=== PATIENT | female | born 1940 | race Two or more races ===

== ENCOUNTER 2023-04-10 16:21 | Emergency (ER) | payer OTHER ==
[~2023-04-10] VITALS: Ht 165.1 cm; Wt 72.6 kg
[2023-04-10] MEDS ORDERED: LOSARTAN POTAS100 MG PO (17:03)
[2023-04-10] MEDS ORDERED: NORVASC5 MG PO (17:03)
[2023-04-10] MEDS ORDERED: LEVOTHYROXINE25 MCG PO (17:03)
[2023-04-10 18:47] LABS: HEMATOCRIT 40.8 % (36.0-45.00); HEMOGLOBIN 13.8 g/dL (12.0-15.00); MEAN CELL VOLUME 85.6 fL (80.00-100.00); MEAN CORPUSCULAR HGB CONC 33.8 g/dl (32.0-36.0); PH,URINE 6.5 (5.0-8.0); PLATELET COUNT 222 K/uL (150-450); RED BLOOD COUNT 4.77 M/uL (4.00-6.00); RED CELL DISTRIBUTION WIDTH 13.8 % (11.5-14.5); URINE APPEARANCE Clear; URINE BILIRRUBIN Negative (NEGATIVE); URINE BLOOD Negative; URINE COLOR Yellow; URINE GLUCOSE Negative (NEGATIVE); URINE LEUKOCYTE Negative; URINE NITRATE Negative; URINE PROTEIN Negative (NEGATIVE)
[2023-04-10 18:50] LABS: URINE BACTERIA 715.5 uL (0.0-1933); URINE EPITHELIAL CELLS 21.7 uL (0.0-38.8); URINE WBC 10.8 uL (0.0-23.2)
[2023-04-10 19:01] LABS: INR 0.98; PARTIAL THROMBOPLASTIN TIME 25.9 SECONDS (22.0-34.0); PROTHROMBIN TIME 10.3 SECONDS (9.0-11.5)
[2023-04-10 19:02] LABS: CALCIUM 9.2 mg/dL (8.5-10.1); CREATININE SERUM 1.02 mg/dL (0.55-1.02); GFR 51.88; POTASSIUM 3.23 mEq/L (3.5-5.1)
== END 2023-04-10 22:49 | disposition home or self-care (01) ==
LOC: ER 16:21
PROVIDERS: General Practice
DX: I10 Essential (primary) hypertension (principal)
CPT/HCPCS: 36415; 71045; 96365; 99283; J3490